=== PATIENT | male | born 1960 | race Caucasian/White ===

== ENCOUNTER 2017-07-22 15:10 | Observation (INO) | payer BC ==
[~2017-07-22] VITALS: Ht 177.8 cm; Wt 110.2 kg
[2017-07-22 15:47] VITALS: BP 143/87; PULSE 78; TEMP 97.8
[2017-07-22] MEDS ORDERED: NO HOME MEDS (16:11)
[2017-07-22 19:00] VITALS: BP 137/77; PULSE 59
[2017-07-22 19:30] VITALS: BP 129/75; PULSE 59
[2017-07-22 20:00] VITALS: BP 151/81; PULSE 60
[2017-07-22 21:00] VITALS: BP 130/71; PULSE 58
[2017-07-23 06:15] VITALS: BP 128/70; PULSE 77; TEMP 97.6
== END 2017-07-23 10:23 | disposition home or self-care (01) ==
LOC: SDCO 15:10 → SURG 17:19
DX: N20.1 Calculus of ureter (principal); K21.9 Gastro-esophageal reflux disease without esophagitis; Z87.442 Personal history of urinary calculi; Z87.891 Personal history of nicotine dependence; Z83.3 Family history of diabetes mellitus; Z80.0 Family history of malignant neoplasm of digestive organs
CPT/HCPCS: C1769; G0378; J0690; J1100; J1885; J1940; J2405; J2704; J3010; J7120; Q9967